=== PATIENT | male | born 1970 | race African-American/Black ===

== ENCOUNTER 2017-04-20 04:52 | Emergency (ER) | payer OTHER ==
[2017-04-20 05:08] VITALS: BP 135/92; BMI 32.5
--- NOTE | 2017-04-20 05:08 | PDOC ---
History of Present Illness - General Chief Complaint: Non EmpBld/Body Flud Exposure Stated Complaint: NEEDLE STICK Time Seen by Provider: 04/20/17 04:54 History Source: Patient Exam Limitations: No Limitations - History of Present Illness Initial Comments: 04/20/17 05:38 46-year-old male with no medical history presents to the emergency department complaining of a finger stick to the right fourth digit 24 hours ago. 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 Patient removed a needle from the patient and did not fully hit the safety button to recap the entire needle. He states he left the needle on the counter and we he went back to retrieve it later, he accidentally stuck himself. Patient denies any medical complaints. Timing/Duration: 24 hours Past History - Past Medical History Allergies/Adverse Reactions: Allergies Allergy/AdvReac Type Severity Reaction Status Date / Time tramadol Allergy Itching Verified 04/20/17 05:03 Home Medications: Ambulatory Orders Raltegravir [Isentress -] 400 mg PO BID #46 tab 04/20/17 HTN: Yes (borderline) - Suicide/Smoking/Psychosocial Hx Smoking History: Never smoked Hx Alcohol Use: No Drug/Substance Use Hx: No Substance Use Type: None Review of Systems - Review of Systems Able to Perform ROS?: Yes Comments:: 04/20/17 05:39 CONSTITUTIONAL: Absent: fever, chills, diaphoresis, generalized weakness, malaise, loss of appetite HEENT: Absent: rhinorrhea, nasal congestion, throat pain, throat swelling, difficulty swallowing, mouth swelling, ear pain, eye pain, visual Changes CARDIOVASCULAR: Absent: chest pain, loss of consciousness, palpitations, irregular heart rate, peripheral edema RESPIRATORY: Absent: cough, shortness of breath, dyspnea with exertion, orthopnea, wheezing, stridor, hemoptysis GASTROINTESTINAL: Absent: abdominal pain, abdominal distension, nausea, vomiting, diarrhea, constipation, melena, hematochezia GENITOURINARY: Absent: dysuria, frequency, urgency, hesitancy, hematuria, flank pain, genital pain MUSCULOSKELETAL: Absent: myalgia, arthralgia, joint swelling SKIN: Absent: rash, itching, pallor HEMATOLOGIC/IMMUNOLOGIC: Absent: easy bleeding, easy bruising, lymphadenopathy, frequent infections ENDOCRINE: Absent: unexplained weight gain, unexplained weight loss, heat intolerance, cold intolerance right 4th digit/ lat nailfold pw Is the patient limited [place] proficient: No *Physical Exam - Vital Signs Last Vital Signs Temp Pulse Resp BP Pulse Ox 135/92 98 04/20/17 05:06 04/20/17 05:06 - Physical Exam Comments: 04/20/17 05:39 GENERAL: Well developed, well nourished. Awake and alert. No acute distress. HEENT: Normocephalic, atraumatic. PERRLA, EOMI. No conjunctival pallor. Sclera are non- icteric. Moist mucous membranes. Oropharynx is clear. NECK: Supple. Full ROM. No JVD. Carotid pulses 2+ and symmetric, without bruits. No thyromegaly. No lymphadenopathy. CARDIOVASCULAR: Regular rate and rhythm. No murmurs, rubs, or gallops. Distal pulses are 2+ and symmetric. PULMONARY: No evidence of respiratory distress. Lungs clear to auscultation bilaterally. No wheezing, rales or rhonchi. ABDOMINAL: Soft. Non-tender. Non-distended. No rebound or guarding. No organomegaly. Normoactive bowel sounds. MUSCULOSKELETAL Normal range of motion at all joints. No bony deformities or tenderness. No CVA tenderness. EXTREMITIES: No cyanosis. No clubbing. No edema. No calf tenderness. SKIN: Warm and dry. Normal capillary refill. No rashes. No jaundice. NEUROLOGICAL: Alert, awake, appropriate. Cranial nerves 2-12 intact. No deficits to light touch and temperature in face, upper extremities and lower extremities. No motor deficits in the in face, upper extremities and lower extremities. Normoreflexic in the upper and lower extremities. Normal speech. Toes are down- going bilaterally. Gait is normal without ataxia. right 4th digit; neg obvious pw *DC/Admit/Observation/Transfer Diagnosis at time of Disposition: Needle stick injury with contaminated needle Qualifiers: Encounter type: initial encounter Qualified Code(s): W46.1XXA - Contact with contaminated hypodermic needle, initial encounter - Discharge Dispostion Disposition: HOME Condition at time of disposition: Stable Admit: No - Prescriptions Prescriptions: Raltegravir [Isentress -] 400 mg PO BID #46 tab - Referrals Referrals: Sterling Reed MD [Primary Care Provider] - - Patient Instructions Printed Discharge Instructions: DI for Accidental Exposure to Body Fluids Additional Instructions: Take to HIV postexposure prophylaxis treatment as directed A prescription has been sent to your pharmacist: Isentress 400 mg take 1 tablet twice a day for 23 days Follow-up with your physician or the infectious disease physician listed on your discharge to follow-up regarding hepatitis screening - Post Discharge Activity Forms/Work/School Notes: Back to Work
[2017-04-20] MEDS ORDERED: HIV POST EXPOSURE PROPHYLAXIS KIT NR ONE (05:14)
[2017-04-20] MEDS ORDERED: HIV POST EXPOSURE PROPHYLAXIS KIT PO ONE (05:31)
== END 2017-04-20 05:47 | disposition home or self-care (01) ==
LOC: JER 04:52
DX: S61.234A Puncture wound without foreign body of right ring finger without damage to nail, initial encounter (principal); W46.1XXA Contact with contaminated hypodermic needle, initial encounter; Y93.F9 Activity, other caregiving; Y92.538 Other ambulatory health services establishments as the place of occurrence of the external cause; Y99.0 Civilian activity done for income or pay
CPT/HCPCS: 99281-25

== ENCOUNTER 2017-09-15 14:21 | Emergency (ER) | payer OTHER ==
[2017-09-15 14:55] VITALS: TEMP 97.9; BMI 29.8
--- NOTE | 2017-09-15 14:59 | PDOC ---
History of Present Illness - General Chief Complaint: Pain, Acute Stated Complaint: ABD PAIN History Source: Patient Exam Limitations: No Limitations - History of Present Illness Initial Comments: 09/15/17 16:18 This 46-year-old male presents to the emergency room with complaints of abdominal pain and cramping. He states that he has had some constipation and he attempted to take your a laxative yesterday and again magnesium citrate this morning without any relief. He does feel somewhat gassy and bloated however he is only had small amounts of bowel movement. He has not been eating all that well but he did have some porridge this morning. He denies taking any opiates. He is a dialysis tach. He has never had a colonoscopy and does not follow-up with a GI specialist. He denies any nausea, vomiting, diarrhea. Past History - Past Medical History Allergies/Adverse Reactions: Allergies Allergy/AdvReac Type Severity Reaction Status Date / Time tramadol Allergy Itching Verified 04/20/17 05:03 Home Medications: Ambulatory Orders NK [No Known Home Medication] 09/15/17 COPD: No HTN: Yes (borderline) Liver Disease: Yes (Hepatitis, elevated liver enzymes) - Suicide/Smoking/Psychosocial Hx Smoking History: Never smoked Have you smoked in the past 12 months: No Information on smoking cessation initiated: No Hx Alcohol Use: No Drug/Substance Use Hx: No Substance Use Type: None Review of Systems - Review of Systems Able to Perform ROS?: Yes Comments:: 09/15/17 16:44 General statement: Hematology: neg history of bleeding/blood thinners Skin: Neg for lesions, rash, bruising. HEENT: Neg symptoms Respiratory: Neg SOB or difficulty in breathing Cardiac: Neg chest pain GI: Neg pain, n/v : Neg problems on voiding MS: Neg for joint pain/stiffness, no edema Neuro: Neg for LOC, weakness, Endocrine: Neg for excess thirst/hunger, cold/heat intolerance, excess sweating Allergies:+ for allergies *Physical Exam - Vital Signs Last Vital Signs Temp Pulse Resp BP Pulse Ox 97.9 F 76 20 139/87 99 09/15/17 14:48 09/15/17 14:48 09/15/17 14:48 09/15/17 14:48 09/15/17 14:48 - Physical Exam Comments: 09/15/17 16:44 General Appearance: This well appearing 46-year-old man V/S: hemodynamically stable, afebrile Skin: WNL of pt's skin color, no signs of pallor, mottling, cyanosis Head:symmetrical Eyes: EOM's intact, PERRLA Ears: denies pain Nose: patent Throat: lips, teeth, gums, tongue, buccal mucos pink and moist Lungs: Chest symmetry equal. Cap refill <3 seconds. Lung sounds clear Cardiac: PMI at R 4MCL space, pos S1 and S2, regular rate. Abdomen: Soft, round, nontender : Not observed Muscularskeletal: Gait steady, ambulated in to ER, no edema +PMS Neuro: AAOx3, cognitively intact, speech clear and appropriate. Medical Decision Making - Medical Decision Making 09/15/17 16:44 Patient was seen and examined. Patient is found with a negative abdomen, no guarding, no tenderness. Abdominal x-ray shows large amounts of stool and preliminarily does not show any signs of obstruction. 09/15/17 16:45 *DC/Admit/Observation/Transfer Diagnosis at time of Disposition: Constipation - Discharge Dispostion Disposition: HOME Condition at time of disposition: Good Admit: No - Referrals Referrals: Sterling Reed MD [Primary Care Provider] - Evan Calvo DO [Staff Physician] - - Patient Instructions Printed Discharge Instructions: Increased Dietary Fiber May Improve Constipation Conditions With Pelvic Noé, DI for Constipation Additional Instructions: Discharge instructions 1. Please follow up with your primary physician within the next few days and explain that you have been seen here in the Emergency Room. 2. If you experience any worsening of symptoms, please return to the ER 3. Rest 4. Drink plenty of water, increase fiber, take stool softeners daily, may use Dulcolax suppository to aid in relieving constipation - Post Discharge Activity Forms/Work/School Notes: Back to Work
[2017-09-15 15:37] LABS: URINE APPEARANCE CLEAR; URINE BILIRUBIN NEGATIVE (<2.0 mg/dL); URINE BLOOD NEGATIVE (NEGATIVE); URINE COLOR YELLOW; URINE GLUCOSE (UA) NEGATIVE (NEGATIVE); URINE KETONE NEGATIVE (NEGATIVE); URINE LEUK ESTERASE NEGATIVE (NEGATIVE); URINE NITRITE NEGATIVE (NEGATIVE); URINE PROTEIN NEGATIVE (NEGATIVE); URINE UROBILINOGEN NEGATIVE mg/dL (0.2-1.0)
[2017-09-15 16:59] VITALS: BP 134/77; PULSE 70
== END 2017-09-15 16:58 | disposition home or self-care (01) ==
LOC: JER 14:21
DX: K59.00 Constipation, unspecified (principal); I10 Essential (primary) hypertension; K75.9 Inflammatory liver disease, unspecified
CPT/HCPCS: 74019-TC-FY; 81003; 99282-25

== ENCOUNTER 2017-09-24 23:07 | Emergency (ER) | payer OTHER ==
[2017-09-24 23:22] VITALS: BP 142/92; PULSE 74; TEMP 98.3; BMI 29.8
--- NOTE | 2017-09-25 00:20 | PDOC ---
History of Present Illness <Gisela De Leon - Last Filed: 09/25/17 00:18> - General History Source: Patient Exam Limitations: No Limitations - History of Present Illness Initial Comments: 09/25/17 00:35 The patient is a 46 year old male with a significant past medical history of borderline hypertension and hepatitis who presents to the emergency department for evaluation of chronic constipation. The patient reports episodes of chronic constipation. The patient reports using laxatives to have a bowel movement which prompted his visit to the emergency department. The patient was seen in August for similar symptoms. The patient had a KUB x-ray done on 09/11 which revealed retained stool. The patient denies change in diet or lifestyle. The patient admits taking Citroma with mild relief. The patient has appointment with GI doctor on 10/14. The patient denies chest pain, shortness of breath, headache, and dizziness. Denies fevers, chills, nausea, vomiting, and diarrhea. Denies dysuria, frequency, urgency, and hematuria. Allergies: Tramadol Past surgical history: Disc removal in back. Social history: No reported cigarette, alcohol, or drug use. PCP: Dr. Sterling Reed ([phone]) <Mushtaq Perez - Last Filed: 09/25/17 00:37> - General Chief Complaint: Constipation Stated Complaint: CONSTIPATION Time Seen by Provider: 09/24/17 23:49 Past History - Past Medical History COPD: No HTN: Yes (borderline) Liver Disease: Yes (Hepatitis, elevated liver enzymes) - Suicide/Smoking/Psychosocial Hx Smoking History: Never smoked Have you smoked in the past 12 months: No Hx Alcohol Use: No Drug/Substance Use Hx: No Substance Use Type: None <Gisela De Leon - Last Filed: 09/25/17 00:18> <Mushtaq Perez - Last Filed: 09/25/17 00:37> - Past Medical History Allergies/Adverse Reactions: Allergies Allergy/AdvReac Type Severity Reaction Status Date / Time tramadol Allergy Itching Verified 09/24/17 23:10 Home Medications: Ambulatory Orders Polyethylene Glycol 3350 [Miralax (For Daily Use) -] 17 gm PO DAILY #1 bottle Review of Systems - Review of Systems Able to Perform ROS?: Yes Comments:: CONSTITUTIONAL: Absent: fever, no chills, no fatigue EYES: Absent: visual changes ENT: Absent: ear pain, no sore throat CARDIOVASCULAR: Absent: chest pain, no palpitations RESPIRATORY: Absent: cough, no SOB GI: (+)Constipation. Absent: abdominal pain, no nausea, no vomiting, no diarrhea GENITOURINARY: Absent: dysuria, no frequency, no hematuria MUSKULOSKELETAL: Absent: back pain, no arthralgia, no myalgia SKIN: Absent: rash NEURO: Absent: headache <Mushtaq Perez - Last Filed: 09/25/17 00:37> *Physical Exam - Vital Signs Last Vital Signs Temp Pulse Resp BP Pulse Ox 98.3 F 74 18 142/92 100 09/24/17 23:10 09/24/17 23:10 09/24/17 23:10 09/24/17 23:10 09/24/17 23:10 <Gisela De Leon - Last Filed: 09/25/17 00:18> - Vital Signs Last Vital Signs Temp Pulse Resp BP Pulse Ox 98.3 F 74 18 142/92 100 09/24/17 23:10 09/24/17 23:10 09/24/17 23:10 09/24/17 23:10 09/24/17 23:10 - Physical Exam Comments: GENERAL: Well-appearing, well-nourished. No apparent distress. HEENT: Normocephalic, atraumatic. PERRL, EOM intact. CARDIOVASCULAR: Normal S1, S2. Regular rate and rhythm. PULMONARY: Clear to auscultation bilaterally. ABDOMEN: Soft, non-distended, non-tender. EXTREMITIES: Normal ROM in all four extremities. No gross deformities. SKIN: Warm, dry. No rash NEUROLOGICAL: No focal neurological deficits. <Mushtaq Perez - Last Filed: 09/25/17 00:37> *DC/Admit/Observation/Transfer <Gisela De Leon - Last Filed: 09/25/17 00:18> - Attestations Scribe Attestion: Documentation prepared by Mushtaq Perez, acting as biomedical repair technician for Gisela De Leon MD. <Mushtaq Perez - Last Filed: 09/25/17 00:37> Diagnosis at time of Disposition: Constipation Qualifiers: Constipation type: other constipation type Qualified Code(s): K59.09 - Other constipation - Discharge Dispostion Disposition: HOME Condition at time of disposition: Stable - Prescriptions Prescriptions: Polyethylene Glycol 3350 [Miralax (For Daily Use) -] 17 gm PO DAILY #1 bottle - Referrals Referrals: Sterling Reed MD [Primary Care Provider] - Shaunna Zapata MD [Staff Physician] - - Patient Instructions Printed Discharge Instructions: DI for Constipation Additional Instructions: please try MIRALAX and use as directed Follow up with GI specialist if symptoms persist - Post Discharge Activity
== END 2017-09-25 00:52 | disposition home or self-care (01) ==
LOC: JER 23:07
DX: K59.09 Other constipation (principal); R94.5 Abnormal results of liver function studies; K75.9 Inflammatory liver disease, unspecified
CPT/HCPCS: 99281-25

== ENCOUNTER 2018-04-09 22:27 | Emergency (ER) | payer OTHER ==
[2018-04-09 22:35] VITALS: BMI 30.5
--- NOTE | 2018-04-09 22:57 | PDOC ---
History of Present Illness - General Chief Complaint: Substance Abuse Stated Complaint: EVALUATION Time Seen by Provider: 04/09/18 22:53 History Source: Patient - History of Present Illness Initial Comments: 04/09/18 23:06 47 year old female c/o palpitations and " hallucinations" after smoking weed with friends for the first time. unsure if marijuana laced with other drugs. denies chest pain, NVD, abdominal discomfort Past History - Past Medical History Allergies/Adverse Reactions: Allergies Allergy/AdvReac Type Severity Reaction Status Date / Time tramadol Allergy Itching Verified 04/09/18 22:35 Home Medications: Ambulatory Orders NK [No Known Home Medication] 04/09/18 COPD: No HTN: Yes (borderline) Liver Disease: Yes (Hepatitis, elevated liver enzymes) - Suicide/Smoking/Psychosocial Hx Smoking History: Never smoked Have you smoked in the past 12 months: No Information on smoking cessation initiated: No Hx Alcohol Use: No Drug/Substance Use Hx: No Substance Use Type: None *Physical Exam - Vital Signs Last Vital Signs Temp Pulse Resp BP Pulse Ox 98.2 F 92 H 16 135/84 100 04/09/18 22:31 04/09/18 22:31 04/09/18 22:31 04/09/18 22:31 04/09/18 22:31 - Physical Exam General Appearance: Yes: Appropriately Dressed HEENT: positive: Other (b/l erythematous conjuntiva. PERRLA) Respiratory/Chest: positive: Lungs Clear, Normal Breath Sounds Cardiovascular: positive: Regular Rhythm, Regular Rate Gastrointestinal/Abdominal: positive: Normal Bowel Sounds, Soft. negative: Tender Extremity: positive: Normal Capillary Refill, Normal Inspection, Normal Range of Motion Integumentary: positive: Normal Color, Dry, Warm Neurologic: positive: Fully Oriented, Alert, Normal Mood/Affect Heart Score/ECG Review - ECG Intrepretation Rhythm: Regular Rhythm Comment:: 04/10/18 01:36 NSR: 79 bpm inferior infarct ED Treatment Course - LABORATORY CBC & Chemistry Diagram: 04/09/18 23:57 04/09/18 23:57 Medical Decision Making - Medical Decision Making 04/09/18 23:08 A: substance abuse P: labs ekg *DC/Admit/Observation/Transfer Diagnosis at time of Disposition: Marijuana use, Palpitations - Discharge Dispostion Disposition: HOME - Referrals Referrals: Sterling Reed MD [Primary Care Provider] - Call tomorrow - Patient Instructions Printed Discharge Instructions: DI for Palpitations Additional Instructions: refrain from using marijuana drink plenty of fluids - Post Discharge Activity Forms/Work/School Notes: Back to Work
[2018-04-09] MEDS ORDERED: SODIUM CHLORIDE 1,000 ML IV STA (22:58)
[2018-04-10] LABS: URINE APPEARANCE CLEAR; URINE BILIRUBIN NEGATIVE (<2.0 mg/dL); URINE COLOR STRAW; URINE GLUCOSE (UA) NEGATIVE (NEGATIVE); URINE KETONE NEGATIVE (NEGATIVE); URINE LEUK ESTERASE NEGATIVE (NEGATIVE); URINE NITRITE NEGATIVE (NEGATIVE); URINE PROTEIN NEGATIVE (NEGATIVE); URINE UROBILINOGEN NEGATIVE mg/dL (0.2-1.0)
[2018-04-10 00:03] LABS: BASO % 0.7 % (0-2.0); EOS % 0.5 % (0-4.5); HEMATOCRIT 49.5 % (35.4-49); HEMOGLOBIN 16.7 GM/dL (11.7-16.9); LYMPH % 17.8 % (8-40); MCH 29.5 pg (25.7-33.7); MCHC 33.8 g/dl (32.0-35.9); MEAN CELL VOLUME 87.4 fl (80-96); MEAN PLT VOLUME 10.8 fl (7.5-11.1); RBC 5.66 M/mm3 (4.00-5.60); RDW 14.7 % (11.9-15.9); WHITE BLOOD COUNT 6.9 K/mm3 (4.0-10.0)
[2018-04-10 00:18] LABS: INR 1.09 (0.83-1.09); PROTHROMBIN TIME (PATIENT) 12.9 SEC (9.7-13.0)
[2018-04-10 01:11] LABS: COCAINE, UR NEGATIVE ng/ml (CUTOFF=300); METHADONE, UR NEGATIVE ng/ml (CUTOFF=300); OPIATES, URI NEGATIVE ng/ml (CUTOFF=300); PHENCYCLIDINE,URINE NEGATIVE ng/ml (CUTOFF=25); URINE AMPHETAMINES NEGATIVE ng/ml (CUTOFF=500); URINE BARBITURATES NEGATIVE ng/ml (CUTOFF=200); URINE BENZODIAZEPINES NEGATIVE ng/ml (CUTOFF=200)
[2018-04-10 01:32] LABS: PLATELET COUNT 201 K/MM3 (134-434)
[2018-04-10 01:42] LABS: ALBUMIN 3.8 g/dl (3.4-5.0); ALK PHOS 71 U/L (45-117); ANION GAP 9 MMOL/L (8-16); BILIRUBIN,TOTAL 0.5 mg/dL (0.2-1); BLOOD UREA NITROGEN 12 mg/dL (7-18); CALCIUM 9.2 mg/dL (8.5-10.1); CHLORIDE 105 mmol/L (98-107); CO2 27 mmol/L (21-32); CREATININE 1.1 mg/dL (0.55-1.3); GLUCOSE,RANDOM 102 mg/dL (74-106); POTASSIUM 3.6 mmol/L (3.5-5.1); SGOT/AST 38 U/L (15-37); SGPT/ALT 58 U/L (13-61); SODIUM 141 mmol/L (136-145); TOT PROT 7.4 g/dl (6.4-8.2)
[2018-04-10 02:10] VITALS: BP 131/88; PULSE 72; TEMP 98.8
--- NOTE | 2018-04-10 11:51 | EKG ---
Test Reason : Blood Pressure : / mmHG Vent. Rate : 073 BPM Atrial Rate : 073 BPM P-R Int : 190 ms QRS Dur : 086 ms QT Int : 350 ms P-R-T Axes : 058 025 000 degrees QTc Int : 385 ms NORMAL SINUS RHYTHM WITH SINUS ARRHYTHMIA NONSPECIFIC T WAVE ABNORMALITY ABNORMAL ECG NO PREVIOUS ECGS AVAILABLE Confirmed by NJ SAWYER MD ([id number]) on 04/10/2018 11:51:32 AM Referred By: Confirmed By:NJ SAWYER MD
== END 2018-04-10 02:11 | disposition home or self-care (01) ==
LOC: JER 22:27
PROC: 3E03329 Introduction of Other Anti-infective into Peripheral Vein, Percutaneous Approach (ICD-10-PCS; principal; 2018-04-09)
PROC: 3E033GC Introduction of Other Therapeutic Substance into Peripheral Vein, Percutaneous Approach (ICD-10-PCS; 2018-04-09)
PROC: 3E0337Z Introduction of Electrolytic and Water Balance Substance into Peripheral Vein, Percutaneous Approach (ICD-10-PCS; 2018-04-09)
DX: R51 Headache (principal); N39.0 Urinary tract infection, site not specified
CPT/HCPCS: 36415; 80053; 80307; 81003; 84484; 85025; 85610; 93005; 93010; 99283-25; J7030

== ENCOUNTER 2018-11-27 18:31 | Emergency (ER) | payer OTHER ==
[2018-11-27] MEDS ORDERED: DIPHTH,PERTUSS(ACELL),TET 0.5 ML DISP.SYRIN IM ONE ×2 (18:35→18:46)
--- NOTE | 2018-11-27 18:37 | PDOC ---
Rapid Medical Evaluation Time Seen by Provider: 11/27/18 18:32 Medical Evaluation: Allergies Allergy/AdvReac Type Severity Reaction Status Date / Time tramadol Allergy Itching Verified 04/09/18 22:35 11/27/18 18:32 Pt presents after a needle stick to the L thumb at work. Pt works as a equipment maintenance technician, and was stuck by a needle in which the patient has HIV. Exam: No noted abrasion to the L thumb Orders: Exposure order set Pt to proceed to the ED for further evaluation Discharge Disposition - Diagnosis Needle stick injury with contaminated needle Qualifiers: Encounter type: initial encounter Qualified Code(s): W27.3XXA - Contact with needle (sewing), initial encounter - Referrals - Patient Instructions - Post Discharge Activity
[2018-11-27 18:38] VITALS: BP 131/91; PULSE 69; TEMP 98.5; BMI 28.5
[2018-11-27 19:12] LABS: BASO % 0.9 % (0-2.0); EOS % 1.8 % (0-4.5); HEMATOCRIT 47.8 % (35.4-49); HEMOGLOBIN 16.2 GM/dL (11.7-16.9); LYMPH % 35.9 % (8-40); MCH 29.9 pg (25.7-33.7); MEAN CELL VOLUME 87.8 fl (80-96); MEAN PLT VOLUME 10.5 fl (7.5-11.1); NEUT % 50.4 % (42.8-82.8); PLATELET COUNT 201 K/MM3 (134-434); RBC 5.44 M/mm3 (4.00-5.60); RDW 14.6 % (11.9-15.9); WHITE BLOOD COUNT 4.9 K/mm3 (4.0-10.0)
[2018-11-27 19:24] LABS: ALBUMIN 4.1 g/dl (3.4-5.0); BILIRUBIN,TOTAL 0.6 mg/dL (0.2-1); CREATININE 1.1 mg/dL (0.55-1.3); TOT PROT 7.7 g/dl (6.4-8.2)
--- NOTE | 2018-11-27 19:26 | PDOC ---
History of Present Illness - General Chief Complaint: Non EmpBld/Body Flud Exposure Stated Complaint: TO BE SEEN Time Seen by Provider: 11/27/18 18:32 - History of Present Illness Initial Comments: 11/27/18 19:25 48-year-old male without comorbidities presents for evaluation of a needle stick. 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 He is not current on tetanus. Past History - Past Medical History Allergies/Adverse Reactions: Allergies Allergy/AdvReac Type Severity Reaction Status Date / Time tramadol Allergy Itching Verified 11/27/18 18:32 Home Medications: Ambulatory Orders NK [No Known Home Medication] 04/09/18 COPD: No HTN: Yes (borderline) Liver Disease: Yes (Hepatitis, elevated liver enzymes) - Immunization History Immunization Up to Date: Yes - Suicide/Smoking/Psychosocial Hx Smoking History: Never smoked Have you smoked in the past 12 months: No Hx Alcohol Use: No Drug/Substance Use Hx: No Substance Use Type: None Review of Systems - Review of Systems Constitutional: Yes: See HPI *Physical Exam - Vital Signs Last Vital Signs Temp Pulse Resp BP Pulse Ox 98.5 F 69 18 131/91 100 11/27/18 18:33 11/27/18 18:33 11/27/18 18:33 11/27/18 18:33 11/27/18 18:33 - Physical Exam Comments: 11/27/18 19:25 Small puncture wound left thumb no gross sensory motor deficits ED Treatment Course - LABORATORY CBC & Chemistry Diagram: 11/27/18 18:50 11/27/18 18:50 - ADDITIONAL ORDERS Additional order review: Laboratory Results 11/27/18 18:50 Sodium 139 Potassium 4.0 Chloride 106 Carbon Dioxide 27 Anion Gap 7 L BUN 12.0 Creatinine 1.1 Est GFR (CKD-EPI)AfAm 90.88 Est GFR (CKD-EPI)NonAf 78.41 Random Glucose 94 Calcium 9.0 Total Bilirubin 0.6 AST 38 H ALT 55 Alkaline Phosphatase 73 Total Protein 7.7 Albumin 4.1 11/27/18 18:50 RBC 5.44 MCV 87.8 MCHC 34.0 RDW 14.6 MPV 10.5 Neutrophils % 50.4 D Lymphocytes % 35.9 D Monocytes % 11.0 H Eosinophils % 1.8 D Basophils % 0.9 - Medications Given in the ED: ED Medications Discontinued Medications Generic Name Dose Route Start Last Admin Trade Name Danay PRN Reason Stop Dose Admin Diphtheria/Tetanus/Acell Pertussis 0.5 ml 11/27/18 18:35 11/27/18 18:49 Boostrix - IM 11/27/18 18:36 0.5 ml ONCE ONE Administration Medical Decision Making - Medical Decision Making 11/27/18 19:26 High-Risk needle injection from a hollow bore needle in HIV-infected patient patient was tested for HIV pending results he would like to have HIV prophylaxis. His tetanus was also updated. 11/27/18 20:53 HIV-negative we'll treat with prophylactic needlestick precautions and follow- up at the [facility] *DC/Admit/Observation/Transfer Diagnosis at time of Disposition: Needle stick injury with contaminated needle Qualifiers: Encounter type: initial encounter Qualified Code(s): W27.3XXA - Contact with needle (sewing), initial encounter - Discharge Dispostion Disposition: HOME Condition at time of disposition: Stable Decision to Admit order: No - Referrals Referrals: Sterling Reed MD [Primary Care Provider] - [facility] Providers [Provider Group] - Patient Instructions Printed Discharge Instructions: How to Handle Body Fluid Exposure -- Healthcare Worker, DI for Accidental Exposure to Body Fluids Additional Instructions: Follow-up with the [facility] as well as her primary care physician for the remainder of the treatment you were given in the emergency room. Return to the emergency room for further issues. - Post Discharge Activity Forms/Work/School Notes: Back to Work
[2018-11-27] MEDS ORDERED: HIV POST EXPOSURE PROPHYLAXIS KIT NR ONE (20:54)
[2018-11-27] MEDS ORDERED: HIV POST EXPOSURE PROPHYLAXIS KIT PO ONE (21:33)
[2018-11-27 21:47] LABS: PLATELET ESTIMATE ADEQUATE
== END 2018-11-27 21:05 | disposition home or self-care (01) ==
LOC: JERFT 18:31
PROC: 3E0234Z Introduction of Serum, Toxoid and Vaccine into Muscle, Percutaneous Approach (ICD-10-PCS; principal; 2018-11-27)
DX: Z77.21 Contact with and (suspected) exposure to potentially hazardous body fluids (principal); W46.1XXA Contact with contaminated hypodermic needle, initial encounter; Y92.9 Unspecified place or not applicable; Y93.9 Activity, unspecified; Y99.0 Civilian activity done for income or pay; K75.9 Inflammatory liver disease, unspecified
CPT/HCPCS: 36415; 80053; 85025; 86317; 86706; 86803; 87340; 87389; 90715; 99281-25

== ENCOUNTER 2020-07-25 14:44 | Emergency (ER) | payer OTHER ==
[2020-07-25 14:57] VITALS: BP 135/88; PULSE 92; TEMP 100.1; BMI 30.5
[2020-07-25] MEDS ORDERED: ACETAMINOPHEN 500 MG TABLET (FP) PO ONE (15:39)
[2020-07-25] MEDS ORDERED: ACETAMINOPHEN 500 MG TABLET (FP) ONE (16:19)
== END 2020-07-25 16:25 | disposition home or self-care (01) ==
LOC: JER 14:44
DX: U07.1 COVID-19 (principal)
CPT/HCPCS: 99283-25; C9803; U0003